=== PATIENT | male | born 1935 | race Caucasian/White ===

== ENCOUNTER 2017-05-08 09:18 | Outpatient (CLI) | payer OTHER ==
[2013-07-31 20:17] VITALS: BP 135/81
[2017-05-08 09:55] LABS: BASOPHILS % 1.3 (0.0-1.5); EOSINOPHILS % 1.6 % (0.0-6.8); MEAN CORPUSCULAR HEMOGLOBIN 30.2 pg (28.0-34.0); MEAN CORPUSCULAR VOLUME 90.2 fl (80.0-100.0); MONOCYTES % 6.8 % (0.0-11.0)
[2017-05-08 10:20] LABS: eGFR (African) > 60; eGFR (Non-African) > 60
== END 2017-05-08 09:19 ==
LOC: LAB 09:18
PROVIDERS: ATTEND Internal Medicine
DX: E78.2 Mixed hyperlipidemia (principal); I10 Essential (primary) hypertension
CPT/HCPCS: 36415; 80048; 80061; 85025

== ENCOUNTER 2018-12-10 07:44 | Outpatient (CLI) | payer OTHER ==
[2013-07-31 20:17] VITALS: BP 135/81
[2018-12-10 08:42] LABS: BASOPHILS % 0.3 (0.0-1.5); EOSINOPHILS % 2.4 % (0.0-6.8); MEAN CORPUSCULAR HEMOGLOBIN 30.9 pg (28.0-34.0); MONOCYTES % 7.5 % (0.0-11.0)
[2018-12-10 08:52] LABS: eGFR (Non-African) > 60
== END 2018-12-10 08:00 ==
LOC: LAB 07:44
PROVIDERS: ATTEND Internal Medicine
DX: I10 Essential (primary) hypertension (principal); E78.5 Hyperlipidemia, unspecified; K21.9 Gastro-esophageal reflux disease without esophagitis
CPT/HCPCS: 36415; 80053; 80061; 85025

== ENCOUNTER 2019-03-30 14:00 | Outpatient (CLI) | payer OTHER ==
[2013-07-31 20:17] VITALS: BP 135/81
== END 2019-03-30 14:03 ==
LOC: LABRHC 14:00
PROVIDERS: ATTEND Podiatrist Foot & Ankle Surgery
DX: B36.9 Superficial mycosis, unspecified (principal)
CPT/HCPCS: 87101; 87220

== ENCOUNTER 2019-12-12 08:14 | Outpatient (CLI) | payer OTHER ==
[2013-07-31 20:17] VITALS: BP 135/81
== END 2019-12-12 08:19 ==
LOC: LAB 08:14
PROVIDERS: ATTEND Internal Medicine
DX: I10 Essential (primary) hypertension (principal); E78.5 Hyperlipidemia, unspecified; K21.9 Gastro-esophageal reflux disease without esophagitis; N40.0 Benign prostatic hyperplasia without lower urinary tract symptoms
CPT/HCPCS: 36415; 80053; 80061; 81002; 85025; 87086